=== PATIENT | female | born 1955 | race Caucasian/White ===

== ENCOUNTER 2016-11-14 14:52 | Outpatient (CLI) | payer OTHER, MEDICARE ==
--- NOTE | 2016-11-14 16:04 | DIAGNOSTIC IMAGING REPORT ---
PROCEDURE: XR ANKLE 3 OR 4 VIEWS - RIGHT INDICATION: RT ANKLE PX/ SWELLING TECHNIQUE: Four views. COMPARISON: None. FINDINGS: Osseous structures and joint spaces are normal. IMPRESSION: 1. Normal right ankle.
== END 2016-11-14 23:00 ==
LOC: XR SRH 14:52
DX: M25.571 Pain in right ankle and joints of right foot (principal)